=== PATIENT | male | born 1945 | race Hispanic/Latino ===

== ENCOUNTER 2016-11-29 12:10 | Inpatient (IN) | payer MEDICARE ==
[2016-11-29 12:19] VITALS: BMI 27.2
[2016-11-29 12:49] LABS: BASO # 0.02 K/mm3 (0.0-2.0); BASO % 0.5 % (0.0-3.0); EOS # 0.1 (0.0-0.7); EOS % 2.8 % (1.5-5.0); GRAN # 2.49 (1.4-6.5); GRAN % 58.9 % (50.0-68.0); HEMOGLOBIN 14.2 gm/dL (14.0-18.0); LYMPH # 1.2 (1.2-3.4); LYMPH % 28.1 % (22.0-35.0); MEAN CELL VOLUME 91.5 fL (80.0-105.0); MEAN CORPUSCULAR HEMOGLOBIN 31.7 pg (25.0-35.0); MEAN CORPUSCULAR HGB CONC 34.6 g/dl (31.0-37.0); MEAN PLATELET VOLUME 9.7 fl (7.0-11.0); MONO # 0.4 (0.1-0.6); MONO % 9.7 % (1.0-6.0); PLATELET COUNT 108 10^3/uL (120.0-450.0); RBC 4.48 10^6/uL (3.5-6.1); WHITE BLOOD COUNT 4.2 10^3/ul (4.5-11.0)
--- NOTE | 2016-11-29 12:56 | ED PDOC ---
Arrival/HPI <Alex Sexton DO - Last Filed: 11/29/16 15:12> - General Historian: Patient - History of Present Illness Time/Duration: 4-6 hours Symptom Onset: Sudden Symptom Course: Improving Quality: Burning Activities at Onset: Other (lifting groceries) Context: Exertion <Priscilla Wynne - Last Filed: 11/29/16 15:17> - General Chief Complaint: Chest Pain Time Seen by Provider: 11/29/16 12:18 - History of Present Illness Narrative History of Present Illness (Text): 11/29/16 12:37 71 year old male with past medical history of hypertension, gout and prostate cancer [place] [facility] [place] for a chest pain. Patient reports his chest pain started this morning at 9:30am, while he was unloading groceries at home. Patient states his pain is located in substernal region, non radiating , burning in quality, does not improve or worsen with positional changes. No prior history of the same. Initially patient thought it was heartburn and took Tagamet and baby aspirin at home which did not provide much relief. Patient received nitroglycerin en route to the ED which alleviated his pain. Patient denies headache, fever, chills, shortness of breath, nausea, or vomiting. Patient drinks alcohol socially, denies tobacco smoking and other drug use. Patient reports his father had "bad arteries" but never had a heart attack. Patient denies ever had cardiac procedures done in the past except for annual EKGs. (Priscilla Wynne) Past Medical History - Provider Review Nursing Documentation Reviewed: Yes - Cardiac Hx Hypertension: Yes - Endocrine/Metabolic Other/Comment: Gout - Psychiatric Hx Depression: No Hx Emotional Abuse: No Hx Physical Abuse: No Hx Substance Use: No - Anesthesia Hx Anesthesia: No Hx Anesthesia Reactions: No Hx Malignant Hyperthermia: No - Suicidal Assessment Feels Threatened In Home Enviroment: No <Priscilla Wynne - Last Filed: 11/29/16 15:17> Family/Social History - Physician Review Nursing Documentation Reviewed: Yes Family/Social History: Other ("bad arteries") Smoking Status: Never Smoked Hx Alcohol Use: No Hx Substance Use: No Hx Substance Use Treatment: No <Priscilla Wynne - Last Filed: 11/29/16 15:17> Allergies/Home Meds <Alex Sexton DO - Last Filed: 11/29/16 15:12> <Priscilla Wynne - Last Filed: 11/29/16 15:17> Allergies/Adverse Reactions: Allergies No Known Allergies Allergy (Verified 03/11/12 15:42) Home Medications: Home Meds Medication Instructions Recorded Confirmed Allopurinol 300 mg PO 03/11/12 03/11/12 Amlodipine Besylate/Hydrochl 1 tab PO 03/11/12 03/11/12 [Exforge Hct 10 mg-25 mg-320 mg] Carvedilol Phosphate [Coreg Cr] 40 mg PO 03/11/12 03/11/12 Review of Systems - Physician Review All systems were reviewed & negative as marked: Yes - Review of Systems Constitutional: Normal. absent: Fatigue, Fevers Eyes: Normal. absent: Vision Changes, Photophobia ENT: Normal. absent: Rhinorrhea, Epistaxis Respiratory: Normal. absent: SOB, Cough Cardiovascular: Chest Pain. absent: Edema, Syncope Gastrointestinal: Normal. absent: Abdominal Pain, Nausea, Vomiting Skin: Normal. absent: Rash, Pruritis, Skin Lesions Neurological: Normal. absent: Headache, Dizziness Endocrine: Normal Psychiatric: Normal. absent: Anxiety, Depression <Priscilla Wynne - Last Filed: 11/29/16 15:17> Physical Exam Vital Signs Reviewed: Yes Temperature: Afebrile Blood Pressure: Normal Pulse: Regular Respiratory Rate: Normal Appearance: Positive for: Well-Appearing, Non-Toxic, Comfortable Pain Distress: None Mental Status: Positive for: Alert and Oriented X 3 - Systems Exam Head: Present: Atraumatic, Normocephalic Pupils: Present: PERRL Extroacular Muscles: Present: EOMI Conjunctiva: Present: Normal Mouth: Present: Moist Mucous Membranes Neck: Present: Normal Range of Motion Respiratory/Chest: Present: Clear to Auscultation, Good Air Exchange. No: Respiratory Distress, Accessory Muscle Use Cardiovascular: Present: Regular Rate and Rhythm, Normal S1, S2. No: Murmurs Abdomen: Present: Normal Bowel Sounds. No: Tenderness, Distention, Peritoneal Signs Back: Present: Normal Inspection Upper Extremity: Present: Normal Inspection, Neurovascularly Intact. No: Cyanosis, Edema Lower Extremity: Present: Normal Inspection, Neurovascularly Intact. No: Edema Neurological: Present: GCS=15, CN II-XII Intact, Speech Normal Skin: Present: Warm, Dry, Normal Color. No: Rashes Psychiatric: Present: Alert, Oriented x 3, Normal Insight, Normal Concentration <Priscilla Wynne - Last Filed: 11/29/16 15:17> Vital Signs Temp Pulse Resp BP Pulse Ox 11/29/16 14:20 62 14 130/77 97 11/29/16 12:18 98.6 F 75 18 121/66 95 Medical Decision Making <Alex Sexton DO - Last Filed: 11/29/16 15:12> <Priscilla Wynne - Last Filed: 11/29/16 15:17> ED Course and Treatment: Patient Seen With Resident: In agreement with resident note. Patient was seen and evaluated with resident, came up with plan and treatment together. (Alex Sexton DO) 11/29/16 12:57 -EKG -CXR -Cardiac ISO -CBC, CMP DDx: NSTEMI, GERD, costochondritis 11/29/16 13:12 Patient complains of chest tightness, repeat EKG ordered. Unchanged. 11/29/16 12:30 Case discussed with PMD Dr. Cheng, recommended Dr. Patel cardiology evaluation 11/29/16 12:35 Dr. Patel paged overhead 11/29/16 13:45 Patient's Troponin positive 0.43 11/29/16 14:35 Dr. Patel will schedule patient for pathology laboratory technologist. Lovenox, nitroglycerin, and plavix ordered. 11/29/16 14:59 Dr. Cheng called back recommends ICU evaluation. 11/29/16 15:15 ICU attending evaluated and accepted patient to ICU 11/29/16 15:15 (Priscilla Wynne) - Lab Interpretations Lab Results: 11/29/16 12:22 11/29/16 12:22 Lab Results 11/29/16 14:00: Urine Color Light yellow, Urine Appearance Clear, Urine pH 6.5, Ur Specific [place] 1.015, Urine Protein Negative, Urine Glucose (UA) Negative, Urine Ketones Negative, Urine Blood Negative, Urine Nitrate Negative, Urine Bilirubin Negative, Urine Urobilinogen 0.2, Ur Leukocyte Esterase Negative 11/29/16 12:22: WBC 4.2 L, RBC 4.48, Hgb 14.2, Hct 41.0 L, MCV 91.5, MCH 31.7, MCHC 34.6, RDW 14.0, Plt Count 108 L, MPV 9.7, Gran % 58.9, Lymph % (Auto) 28.1 , [place] % (Auto) 9.7 H, Eos % (Auto) 2.8, Baso % (Auto) 0.5, Gran # 2.49, Lymph # 1.2, [place] # 0.4, Eos # 0.1, Baso # 0.02 11/29/16 12:22: Sodium 138, Potassium 5.4 H, Chloride 104, Carbon Dioxide 25, Anion Gap 14, BUN 18, Creatinine 1.0, Est GFR ( Amer) > 60, Est GFR (Non- Af Amer) > 60, Random Glucose 150 H, Calcium 9.2, Magnesium 1.9, Total Bilirubin 0.8, AST 38, ALT 46, Alkaline Phosphatase 53, Lactate Dehydrogenase 223 L, Total Creatine Kinase 118, Troponin I 0.43 H*, Total Protein 7.4, Albumin 4.3, Globulin 3.1, Albumin/Globulin Ratio 1.4 - RAD Interpretation Radiology Orders: 11/29/16 12:34 CHEST PORTABLE [RAD] Stat - EKG Interpretation EKG Interpretation (Text): 11/29/16 12:20 NSR at 71 bpm, LVH, ST depress in lateral leads 11/29/16 13:17 NSR at 67 bpm, rest unchanged (Priscilla Wynne) - Medication Orders Current Medication Orders: Discontinued Medications Atropine Sulfate (Atropine) Confirm Administered Dose 1 mg .ROUTE .STK-MED ONE Stop: 11/29/16 15:12 Clopidogrel Bisulfate (Plavix) 600 mg PO STAT STA Stop: 11/29/16 14:53 Last Admin: 11/29/16 15:00 Dose: 600 mg Enoxaparin Sodium (Lovenox) 90 mg SC STAT STA PRN Reason: Protocol Stop: 11/29/16 14:13 Last Admin: 11/29/16 14:18 Dose: 90 mg Nitroglycerin/Dextrose (Nitroglycerin 50 Mg/250 Ml D5w) Confirm Administered Dose 50 mg in 250 mls @ ud IV .STK-MED ONE Stop: 11/29/16 15:13 Heparin Sodium (Porcine) (Heparin 1000 Units/500 Ml Ns) Confirm Administered Dose 1,500 mls @ ud IV .STK-MED ONE Stop: 11/29/16 15:13 Iodixanol (Visipaque 320 Mg/Ml 100 Ml) Confirm Administered Dose 100 ml IV .STK- MED ONE Stop: 11/29/16 15:12 Iodixanol (Visipaque 320 Mg/Ml 200 Ml) Confirm Administered Dose 200 ml IV .STK- MED ONE Stop: 11/29/16 15:13 Iohexol (Omnipaque 350mg/Ml 50 Ml) Confirm Administered Dose 50 ml .ROUTE .STK- MED ONE Stop: 11/29/16 15:12 Lidocaine HCl (Lidocaine 2% 20ml Vial) Confirm Administered Dose 20 ml .ROUTE .STK-MED ONE Stop: 11/29/16 15:12 Nitroglycerin (Nitrostat Sl Tab) 0.4 mg SL STAT STA Stop: 11/29/16 13:55 Last Admin: 11/29/16 14:00 Dose: 0.4 mg Phenylephrine HCl (Phenylephrine Inj) Confirm Administered Dose 10 mg .ROUTE .STK-MED ONE Stop: 11/29/16 15:12 - PA / FIELD CONTACT PERSON / Resident Statement VIVI has reviewed & agrees with the documentation as recorded. VIVI has examined the patient and agrees with the treatment plan. <Priscilla Wynne - Last Filed: 11/29/16 15:17> Disposition/Present on Arrival <Alex Sexton DO - Last Filed: 11/29/16 15:12> - Present on Arrival Any Indicators Present on Arrival: No History of DVT/PE: No History of Uncontrolled Diabetes: No Urinary Catheter: No History of Decub. Ulcer: No History Surgical Site Infection Following: None - Disposition Have Diagnosis and Disposition been Completed?: Yes Disposition Time: 15:11 Patient Plan: ICU <Priscilla Wynne - Last Filed: 11/29/16 15:17> - Disposition Diagnosis: NSTEMI (non-ST elevated myocardial infarction) Disposition: HOSPITALIZED Patient Problems: Current Active Problems Problem Status Onset NSTEMI (non-ST elevated myocardial infarction) Acute Condition: FAIR Referrals: Kan Cheng DO [Primary Care Provider] - Follow up with primary Critical Care Time - Critical Care Note Total Time (in mins): 60 Documented critical care: time excludes all time spent performing seperately billable procedures. <Alex Sexton DO - Last Filed: 11/29/16 15:12>
[2016-11-29 13:01] LABS: ALB/GLOB RATIO 1.4 (1.1-1.8); ALBUMIN 4.3 g/dL (3.0-4.8); ALT/SGPT 46 U/L (7-56); AST/SGOT 38 U/L (15-59); BLOOD UREA NITROGEN 18 mg/dL (7-21); CALCIUM 9.2 mg/dL (8.4-10.5); GFR AFRICAN-AMERICAN > 60; GFR NON-AFRICAN AMERICAN > 60; MAGNESIUM 1.9 mg/dL (1.7-2.2)
[2016-11-29 13:37] LABS: TROPONIN I 0.43 ng/mL
[2016-11-29 14:06] LABS: PH,URINE 6.5 (4.7-8.0); URINE BILIRUBIN NEGATIVE (NEGATIVE); URINE BLOOD NEGATIVE (NEGATIVE); URINE GLUCOSE (UA) NEGATIVE (NEGATIVE); URINE LEUKOCYTE ESTERASE NEGATIVE Leu/uL (NEGATIVE); URINE NITRATE NEGATIVE (NEGATIVE); URINE PROTEIN NEGATIVE mg/dL (<30 mg/dL); URINE UROBILINOGEN 0.2 E.U./dL (<1 E.U./dL)
[2016-11-29 14:09] LABS: URINE APPEARANCE CLEAR (CLEAR); URINE COLOR LIGHT YELLOW (YELLOW)
[2016-11-29] MEDS ORDERED: Enoxaparin 100 mg Syringe SC STA (14:12)
--- NOTE | 2016-11-29 14:20 | RAD ---
HISTORY: chest pain COMPARISON: 03/11/2012 FINDINGS: LUNGS: No active pulmonary disease. PLEURA: No significant pleural effusion identified, no pneumothorax apparent. CARDIOVASCULAR: Normal. OSSEOUS STRUCTURES: No significant abnormalities. VISUALIZED UPPER ABDOMEN: Normal. OTHER FINDINGS: None. IMPRESSION: No active disease.
[2016-11-29] MEDS ORDERED: Iohexol 350mgl/ml 50 ML ONE (15:11)
[2016-11-29] MEDS ORDERED: Lidocaine 2% Inj (20ml) ONE (15:11)
[2016-11-29] MEDS ORDERED: Phenylephrine 10 mg/ml Inj ONE (15:11)
[2016-11-29] MEDS ORDERED: Iodixanol 320 MG/ML 100 ML BOTTLE IV ONE (15:11)
[2016-11-29] MEDS ORDERED: Nitroglycerin 50mg in D5W 0 MG/0 ML BOTTLE IV ONE (15:12)
[2016-11-29] MEDS ORDERED: Iodixanol 320 MG/ML 200 ML BOTTLE IV ONE (15:12)
[2016-11-29 15:18] LABS: INR 1.05 (0.93-1.08); PARTIAL THROMBOPLASTIN TIME 28.2 Seconds (23.7-30.8); PROTHROMBIN TIME 11.3 Seconds (9.9-11.8)
[2016-11-29] MEDS ORDERED: Midazolam 2 MG/2 ML VIAL ONE ×2 (15:22→16:07)
[2016-11-29] MEDS ORDERED: Eptifibatide 20 mg/10mL Inj IVP ONE (15:23)
--- NOTE | 2016-11-29 15:30 | CP.PCM.CON ---
History of Present Illness - History of Present Illness History of Present Illness: 71 yo male with HTN who presented with half a day duration of substernal burning chest pain , non-radiating, without modifying factors, associated with some SOB. No F/C/S, No N/V/D. In ED EKG showed I, II and V5V6 ST depression. Pain slightly improved with sl nitro. No abdo pain Review of Systems - Review of Systems All systems: reviewed and no additional remarkable complaints except - Constitutional Constitutional: As Per HPI - Cardiovascular Cardiovascular: Chest Pain - Respiratory Respiratory: Dyspnea on Exertion Past Patient History - Past Medical History & Family History Past Medical History?: Yes Past Family History: Reviewed and not pertinent (HTN) - Past Social History Smoking Status: Never Smoked Alcohol: Occasional Drugs: Denies Domestic Violence: Negative - CARDIAC Hx Hypertension: Yes - ENDOCRINE/METABOLIC Other/Comment: Gout - PSYCHIATRIC Hx Depression: No Hx Emotional Abuse: No Hx Physical Abuse: No Hx Substance Use: No - ANESTHESIA Hx Anesthesia: No Hx Anesthesia Reactions: No Hx Malignant Hyperthermia: No Meds Allergies/Adverse Reactions: Allergies Allergy/AdvReac Type Severity Reaction Status Date / Time No Known Allergies Allergy Verified 03/11/12 15:42 Physical Exam - Constitutional Appears: Well - Head Exam Head Exam: ATRAUMATIC, NORMAL INSPECTION, NORMOCEPHALIC - Eye Exam Eye Exam: EOMI, PERRL - ENT Exam ENT Exam: Mucous Membranes Moist - Respiratory Exam Respiratory Exam: Clear to Auscultation Bilateral, NORMAL BREATHING PATTERN - Cardiovascular Exam Cardiovascular Exam: REGULAR RHYTHM - GI/Abdominal Exam GI & Abdominal Exam: Soft - Neurological Exam Neurological exam: Oriented x3 - Psychiatric Exam Psychiatric exam: Normal Affect, Normal Mood - Skin Skin Exam: Intact Results - Vital Signs Recent Vital Signs: Last Vital Signs Temp 98.6 F 11/29/16 12:18 Pulse 62 11/29/16 14:20 Resp 14 11/29/16 14:20 BP 130/77 11/29/16 14:20 Pulse Ox 97 11/29/16 14:20 - Labs Result Diagrams: 11/29/16 12:22 11/29/16 12:22 Labs: Laboratory Results - last 24 hr 11/29/16 11/29/16 11/29/16 12:22 12:22 14:00 WBC 4.2 L RBC 4.48 Hgb 14.2 Hct 41.0 L MCV 91.5 MCH 31.7 MCHC 34.6 RDW 14.0 Plt Count 108 L MPV 9.7 Gran % 58.9 Lymph % (Auto) 28.1 [place] % (Auto) 9.7 H Eos % (Auto) 2.8 Baso % (Auto) 0.5 Gran # 2.49 Lymph # 1.2 [place] # 0.4 Eos # 0.1 Baso # 0.02 Sodium 138 Potassium 5.4 H Chloride 104 Carbon Dioxide 25 Anion Gap 14 BUN 18 Creatinine 1.0 Est GFR ( Amer) > 60 Est GFR (Non-Af Amer) > 60 Random Glucose 150 H Calcium 9.2 Magnesium 1.9 Total Bilirubin 0.8 AST 38 ALT 46 Alkaline Phosphatase 53 Lactate Dehydrogenase 223 L Total Creatine Kinase 118 Troponin I 0.43 H* Total Protein 7.4 Albumin 4.3 Globulin 3.1 Albumin/Globulin Ratio 1.4 Urine Color Light yellow Urine Appearance Clear Urine pH 6.5 Ur Specific [place] 1.015 Urine Protein Negative Urine Glucose (UA) Negative Urine Ketones Negative Urine Blood Negative Urine Nitrate Negative Urine Bilirubin Negative Urine Urobilinogen 0.2 Ur Leukocyte Esterase Negative Assessment & Plan - Assessment and Plan (Free Text) Assessment: NSTEMI with ongoing chest pain and troponin leak Plan: 1. Plavix bolus and then 75 mg daily 2. Aspirin 325 mg PO daily 3. bb, statins, heparin drip (after PCI) 4. nitro drip 4. cardio consult to consider PCI 6. Echo, serial troponin ccm time 40 min
[2016-11-29] MEDS ORDERED: Nitroglycerin 50mg in D5W 50 MG/250 ML BOTTLE IV ONE (15:50)
[2016-11-29] MEDS ORDERED: Eptifibatide 0.75 mg/ml 75 MG/100 ML BOTTLE IV ONE (15:50)
--- NOTE | 2016-11-29 16:03 | CP.PCM.HP ---
History of Present Illness - History of Present Illness History of Present Illness: 71 y/o w/m well known to me from the office w/ a hx of mid substernal cp which started this am at 930 also went to abd 1st time w/ this and took an asa and didnt helps nitro given in ambulance and helped some pmed hx of gout nhtn prostate ca pfamhx of cad bad heart psochx no tob no alc no drugs nkda allopurinol exforge coreg +cp bad no sob +abd pain no h/a no dizzy skin=ok Present on Admission - Present on Admission Any Indicators Present on Admission: Yes History of DVT/PE: No History of Uncontrolled Diabetes: No Urinary Catheter: No Decubitus Ulcer Present: No Review of Systems - Cardiovascular Cardiovascular: Chest Pain, Chest Pain at Rest Past Patient History - Past Medical History & Family History Past Medical History?: Yes Past Family History: Reviewed and not pertinent (HTN) - Past Social History Smoking Status: Never Smoked Alcohol: Occasional Drugs: Denies Domestic Violence: Negative - CARDIAC Hx Hypertension: Yes - ENDOCRINE/METABOLIC Other/Comment: Gout - PSYCHIATRIC Hx Depression: No Hx Emotional Abuse: No Hx Physical Abuse: No Hx Substance Use: No - ANESTHESIA Hx Anesthesia: No Hx Anesthesia Reactions: No Hx Malignant Hyperthermia: No Meds Allergies/Adverse Reactions: Allergies Allergy/AdvReac Type Severity Reaction Status Date / Time No Known Allergies Allergy Verified 03/11/12 15:42 Physical Exam - Constitutional Appears: In Acute Distress - Head Exam Head Exam: ATRAUMATIC, NORMAL INSPECTION, NORMOCEPHALIC - Eye Exam Eye Exam: EOMI - ENT Exam ENT Exam: Normal Exam - Neck Exam Neck exam: Positive for: Normal Inspection - Respiratory Exam Respiratory Exam: Decreased Breath Sounds, NORMAL BREATHING PATTERN - Cardiovascular Exam Cardiovascular Exam: REGULAR RHYTHM - GI/Abdominal Exam GI & Abdominal Exam: Normal Bowel Sounds, Soft - Extremities Exam Extremities exam: Positive for: normal inspection - Back Exam Back exam: NORMAL INSPECTION - Neurological Exam Neurological exam: Alert, CN II-XII Intact, Oriented x3 - Psychiatric Exam Psychiatric exam: Anxious, Normal Affect - Skin Skin Exam: Warm Results - Vital Signs Recent Vital Signs: Last Vital Signs Temp 98.6 F 11/29/16 12:18 Pulse 62 11/29/16 14:20 Resp 14 11/29/16 14:20 BP 130/77 11/29/16 14:20 Pulse Ox 97 11/29/16 14:20 - Labs Result Diagrams: 11/29/16 12:22 11/29/16 12:22 Labs: Laboratory Results - last 24 hr 11/29/16 11/29/16 11/29/16 12:22 12:22 12:22 WBC 4.2 L RBC 4.48 Hgb 14.2 Hct 41.0 L MCV 91.5 MCH 31.7 MCHC 34.6 RDW 14.0 Plt Count 108 L MPV 9.7 Gran % 58.9 Lymph % (Auto) 28.1 [place] % (Auto) 9.7 H Eos % (Auto) 2.8 Baso % (Auto) 0.5 Gran # 2.49 Lymph # 1.2 [place] # 0.4 Eos # 0.1 Baso # 0.02 PT 11.3 INR 1.05 APTT 28.2 Sodium 138 Potassium 5.4 H Chloride 104 Carbon Dioxide 25 Anion Gap 14 BUN 18 Creatinine 1.0 Est GFR ( Amer) > 60 Est GFR (Non-Af Amer) > 60 Random Glucose 150 H Calcium 9.2 Magnesium 1.9 Total Bilirubin 0.8 AST 38 ALT 46 Alkaline Phosphatase 53 Lactate Dehydrogenase 223 L Total Creatine Kinase 118 Troponin I 0.43 H* Total Protein 7.4 Albumin 4.3 Globulin 3.1 Albumin/Globulin Ratio 1.4 Urine Color Urine Appearance Urine pH Ur Specific [place] Urine Protein Urine Glucose (UA) Urine Ketones Urine Blood Urine Nitrate Urine Bilirubin Urine Urobilinogen Ur Leukocyte Esterase BBK History Checked 11/29/16 11/29/16 14:00 15:10 WBC RBC Hgb Hct MCV MCH MCHC RDW Plt Count MPV Gran % Lymph % (Auto) [place] % (Auto) Eos % (Auto) Baso % (Auto) Gran # Lymph # [place] # Eos # Baso # PT INR APTT Sodium Potassium Chloride Carbon Dioxide Anion Gap BUN Creatinine Est GFR ( Amer) Est GFR (Non-Af Amer) Random Glucose Calcium Magnesium Total Bilirubin AST ALT Alkaline Phosphatase Lactate Dehydrogenase Total Creatine Kinase Troponin I Total Protein Albumin Globulin Albumin/Globulin Ratio Urine Color Light yellow Urine Appearance Clear Urine pH 6.5 Ur Specific [place] 1.015 Urine Protein Negative Urine Glucose (UA) Negative Urine Ketones Negative Urine Blood Negative Urine Nitrate Negative Urine Bilirubin Negative Urine Urobilinogen 0.2 Ur Leukocyte Esterase Negative BBK History Checked No verified bt Assessment & Plan - Assessment and Plan (Free Text) Assessment: acute nstemi gerd Plan: consult cardio for cath dr torres icu eval meds labs meds tests reviewed +tpn for cath now acutely then to the icu discussed w/ patient and answered questions - Date & Time Date: 11/29/16 Time: 16:00
[2016-11-29] MEDS ORDERED: Sodium Chloride 0.9% 1,000 ML IV SCH (17:00)
[2016-11-29 17:51] VITALS: TEMP 98.2
[2016-11-29 18:29] VITALS: BP 123/48; PULSE 79; RESP 14; O2SAT 96
--- NOTE | 2016-11-30 08:54 | CARD ---
APPROVED REPORT EKG Measurement Heart [id number] <Conclusion> Poor data quality, interpretation may be adversely affected Normal sinus rhythm Possible Left atrial enlargement Left ventricular hypertrophy with repolarization abnormality Abnormal ECG
--- NOTE | 2016-11-30 08:56 | CARD ---
APPROVED REPORT EKG Measurement Heart [id number] <Conclusion> Normal sinus rhythm Left ventricular hypertrophy with repolarization abnormality Abnormal ECG
== END 2016-11-29 18:30 | disposition short-term general hospital (02) | DRG 272 ==
LOC: ED 12:10 → CATH 15:49 → CCU 17:19
PROVIDERS: ADMIT Family Medicine; ATTEND Family Medicine
PROC: 4A023N7 Measurement of Cardiac Sampling and Pressure, Left Heart, Percutaneous Approach (ICD-10-PCS; principal; 2016-11-29)
PROC: B2111ZZ Fluoroscopy of Multiple Coronary Arteries using Low Osmolar Contrast (ICD-10-PCS; 2016-11-29)
PROC: B2151ZZ Fluoroscopy of Left Heart using Low Osmolar Contrast (ICD-10-PCS; 2016-11-29)
PROC: 5A02210 Assistance with Cardiac Output using Balloon Pump, Continuous (ICD-10-PCS; 2016-11-29)
DX: I21.4 Non-ST elevation (NSTEMI) myocardial infarction (principal); I10 Essential (primary) hypertension; M10.9 Gout, unspecified; I25.10 Atherosclerotic heart disease of native coronary artery without angina pectoris; K21.9 Gastro-esophageal reflux disease without esophagitis; M94.0 Chondrocostal junction syndrome [Tietze]; Z85.46 Personal history of malignant neoplasm of prostate